=== PATIENT | female | born 1955 | race Two or more races ===

== ENCOUNTER → 2017-06-03 | Outpatient (CLI) | payer BC | END | disposition home or self-care (01) | LOC: LAB 13:41 | PROVIDERS: ATTEND Psychiatry & Neurology Neurology | DX: E61.1 Iron deficiency (principal) | CPT/HCPCS: 82728; 83540; 83550 ==

== ENCOUNTER 2019-05-15 09:24 | Emergency (ER) | payer BC ==
[~2019-05-15] VITALS: Ht 160 cm; Wt 104.3 kg
[2019-05-15] MEDS ORDERED: SODIUM CHLORIDE 0.9% 1,000 ML IV ONE (10:06)
[2019-05-15 10:12] VITALS: BP 145/70
[2019-05-15] MEDS ORDERED: ONDANSETRON HCL 4 MG/2 ML VIAL IV ONE (10:30)
[2019-05-15 10:33] LABS: Basophils # (auto) 0.1 uL; Basophils % (auto) 0.6 % (0.0-2.0); Eosinophils # (auto) 0 uL; Eosinophils % (auto) 0.2 % (0.0-7.0); Hematocrit 43.9 % (36.0-46.0); Lymphocytes # (auto) 1.4 uL; Lymphocytes % (auto) 14.8 % (10.0-50.0); Mean Corpuscular Hemoglobin 30.6 pg (28.0-32.0); Mean Corpuscular Hgb Conc. 34.1 g/dL (32.0-36.0); Monocytes # (auto) 0.5 uL; Monocytes % (auto) 5.5 % (0.0-12.0); Neutrophils # (auto) 7.6 uL; Neutrophils % (auto) 78.9 % (37.0-80.0); Platelet Count (auto) 299 10^3/uL (140-450); Red Blood Cells 4.88 10^6/uL (4.0-5.20); Red Cell Distribution Width 12.8 % (11.8-14.3); White Blood Cell 9.7 10^3/uL (4.4-10.8)
[2019-05-15 10:41] LABS: Albumin 3.4 g/dL (3.4-5.0); Calcium 8.6 mg/dL (8.5-10.1); Potassium 4.1 mmol/L (3.5-5.1)
[2019-05-15 10:43] LABS: BUN/Creatinine Ratio 19.4
[2019-05-15 10:48] LABS: Bilirubin, Total 0.2 mg/dL (0.2-1.0); Total Protein 7.1 g/dL (6.4-8.2)
[2019-05-15 12:24] LABS: Urine Bacteria NONE SEEN /hpf (None Seen); Urine Blood Negative /uL (Negative); Urine Mucus FEW (None Seen); Urine Specific Gravity 1.021 (1.001-1.035); Urine WBC 1 /hpf (0 - 5)
== END 2019-05-15 13:50 | disposition home or self-care (01) ==
LOC: EDUNIT# 09:24 → EDBD 09:24 → ER 09:26
DX: G40.909 Epilepsy, unspecified, not intractable, without status epilepticus (principal); E86.0 Dehydration; E78.5 Hyperlipidemia, unspecified; R51 Headache; R41.82 Altered mental status, unspecified; E11.9 Type 2 diabetes mellitus without complications; F43.9 Reaction to severe stress, unspecified
CPT/HCPCS: 36415; 70450; 71045; 80053; 81001; 82962; 84484; 85025; 93005; 96361; 96374; 99284; J2405; J7030